=== PATIENT | female | born 2000 | race Caucasian/White ===

== ENCOUNTER 2023-07-04 18:48 | Outpatient (CLI) | payer OTHER | END 2023-07-04 21:02 | disposition home or self-care (01) | LOC: NST 18:48 | PROVIDERS: ATTEND Obstetrics & Gynecology | DX: Z34.83 Encounter for supervision of other normal pregnancy, third trimester (principal) ==

== ENCOUNTER 2023-08-20 12:35 | Outpatient (CLI) | payer OTHER | END 2023-08-20 13:14 | disposition home or self-care (01) | LOC: NST 12:35 | PROVIDERS: ATTEND Obstetrics & Gynecology Maternal & Fetal Medicine | DX: Z34.83 Encounter for supervision of other normal pregnancy, third trimester (principal) ==

== ENCOUNTER 2023-09-05 12:46 | Outpatient (CLI) | payer OTHER | END 2023-09-05 13:25 | disposition home or self-care (01) | LOC: NST 12:46 | PROVIDERS: ATTEND Obstetrics & Gynecology Gynecology | DX: Z34.83 Encounter for supervision of other normal pregnancy, third trimester (principal) ==

== ENCOUNTER 2023-09-11 20:59 | Outpatient (CLI) | payer OTHER ==
[2023-09-11] MEDS ORDERED: KEPPRA500 MG PO (22:13)
[2023-09-11] MEDS ORDERED: PRENATAL + DHA1 EAC1 PO (22:13)
== END 2023-09-12 00:30 | disposition home or self-care (01) ==
LOC: OBS/DEL 20:59
PROVIDERS: ATTEND Obstetrics & Gynecology Maternal & Fetal Medicine
DX: O36.8130 Decreased fetal movements, third trimester, not applicable or unspecified (principal); Z3A.38 38 weeks gestation of pregnancy; Z91.040 Latex allergy status

== ENCOUNTER 2023-09-14 08:45 | Inpatient (IN) | payer OTHER ==
[~2023-09-14] VITALS: Ht 162.6 cm; Wt 3.2 kg
[~2023-09-14 08:45] MED LIST: KEPPRA500 MG PO; PRENATAL + DHA1 EAC1 PO
[2023-09-18 13:29] LABS: MEAN CELL VOLUME 71.5 fL (80.00-100.00); MEAN CORPUSCULAR HGB CONC 32.4 g/dl (32.0-36.0); RED BLOOD COUNT 3.78 M/uL (4.00-6.00); RED CELL DISTRIBUTION WIDTH 17.9 % (11.5-14.5)
[2023-09-18 13:58] LABS: ALBUMIN 2.5 gm/dL (3.4-5.0); BILIRUBIN TOTAL 0.18 mg/dL (0.3-1.2); CALCIUM 8.6 mg/dL (8.5-10.1); CREATININE SERUM 0.46 mg/dL (0.55-1.02); GFR 166.89; GLOBULINA 3.6 G/DL (2.4-3.5); POTASSIUM 3.92 mEq/L (3.5-5.1); TOTAL PROTEIN 6.1 gm/dL (6.4-8.2)
[2023-09-18 14:08] LABS: HEMOGLOBIN 8.7 g/dL (12.0-15.00)
[2023-09-18 14:09] LABS: PLATELET COUNT 376 K/uL (150-450)
[2023-09-18] MEDS ORDERED: PRENATAL TABLE1 EAC1 (14:15)
[2023-09-18] MEDS ORDERED: KEPPRA500 MG PO (14:20)
[2023-09-18 14:28] LABS: INR < 0.93; PARTIAL THROMBOPLASTIN TIME 28.2 SECONDS (22.0-34.0); PROTHROMBIN TIME 9.8 SECONDS (9.0-11.5)
[2023-09-20 12:19] LABS: MEAN CELL VOLUME 70.6 fL (80.00-100.00); MEAN CORPUSCULAR HGB CONC 32.1 g/dl (32.0-36.0); PLATELET COUNT 323 K/uL (150-450); RED BLOOD COUNT 3.21 M/uL (4.00-6.00); RED CELL DISTRIBUTION WIDTH 18.6 % (11.5-14.5)
[2023-09-20 12:26] LABS: HEMATOCRIT 22.6 % (36.0-45.00); MEAN CORPUSCULAR HEMOGLOBIN 22.7 pg (27.00-32.0)
[2023-09-20 12:28] LABS: HEMOGLOBIN 7.3 g/dL (12.0-15.00)
[2023-09-21 09:06] LABS: MEAN CELL VOLUME 70.6 fL (80.00-100.00); MEAN CORPUSCULAR HGB CONC 32.2 g/dl (32.0-36.0); PLATELET COUNT 333 K/uL (150-450); RED BLOOD COUNT 3.03 M/uL (4.00-6.00); RED CELL DISTRIBUTION WIDTH 18.7 % (11.5-14.5)
[2023-09-21 09:13] LABS: HEMATOCRIT 21.4 % (36.0-45.00); HEMOGLOBIN 6.9 g/dL (12.0-15.00); MEAN CORPUSCULAR HEMOGLOBIN 22.7 pg (27.00-32.0)
[2023-09-22 11:32] LABS: HEMATOCRIT 26.1 % (36.0-45.00); MEAN CELL VOLUME 72.5 fL (80.00-100.00); MEAN CORPUSCULAR HEMOGLOBIN 23.6 pg (27.00-32.0); MEAN CORPUSCULAR HGB CONC 32.5 g/dl (32.0-36.0); PLATELET COUNT 360 K/uL (150-450); RED CELL DISTRIBUTION WIDTH 19.2 % (11.5-14.5)
[2023-09-22 11:37] LABS: HEMOGLOBIN 8.5 g/dL (12.0-15.00)
[2023-09-22 16:09] LABS: INR 0.96; PARTIAL THROMBOPLASTIN TIME 30.7 SECONDS (22.0-34.0); PROTHROMBIN TIME 10.1 SECONDS (9.0-11.5)
== END 2023-09-22 18:47 | disposition home or self-care (01) | DRG 787 ==
LOC: LDR 09-18 11:30 → OB/GYN 09-18 11:30 → O/R 09-19 13:40 → OB/GYN 09-19 15:44
PROVIDERS: ADMIT Obstetrics & Gynecology; ATTEND Obstetrics & Gynecology
PROC: 4A1HXCZ Monitoring of Products of Conception, Cardiac Rate, External Approach (ICD-10-PCS; 2023-09-18)
PROC: 3E0P7VZ Introduction of Hormone into Female Reproductive, Via Natural or Artificial Opening (ICD-10-PCS; 2023-09-18)
PROC: 3E033VJ Introduction of Other Hormone into Peripheral Vein, Percutaneous Approach (ICD-10-PCS; 2023-09-19)
PROC: 10D00Z1 Extraction of Products of Conception, Low, Open Approach (ICD-10-PCS; principal; 2023-09-19 13:00)
PROC: 30233N1 Transfusion of Nonautologous Red Blood Cells into Peripheral Vein, Percutaneous Approach (ICD-10-PCS; 2023-09-21)
DX: O61.0 Failed medical induction of labor (principal); D62 Acute posthemorrhagic anemia; O13.4 Gestational [pregnancy-induced] hypertension without significant proteinuria, complicating childbirth; O99.824 Streptococcus B carrier state complicating childbirth; O99.02 Anemia complicating childbirth; Z3A.39 39 weeks gestation of pregnancy; Z37.0 Single live birth; Z20.822 Contact with and (suspected) exposure to COVID-19